=== PATIENT | female | born 1985 | race Caucasian/White ===

== ENCOUNTER 2016-12-25 05:27 | Day surgery (SDC) | payer OTHER ==
--- NOTE | 2016-12-22 22:37 | PREOPHP ---
DATE OF ADMISSION: 12/25/2016 This patient is coming for surgical procedure on the . HISTORY OF PRESENT ILLNESS: Jaymie Isbell is a 31-year-old female, 0, para 0. This patient had seen me in October of this year due to irregular periods with a lost IUD. This patient had a Sriram dayna IUD inserted at [facility] in August of this year and got lost in the pelvis. The ultr asound did not show any intrauterine device. The patient states that a KUB x-ray showed that the IU D was in free the cavity of the peritoneum. She is very uptight about it and would like to have it removed, as she is now having low abdominal pain. PAST MEDICAL HISTORY: Healthy. ALLERGIES: SHE IS NOT ALLERGIC TO ANY MEDICATIONS. SOCIAL HISTORY: She does not drink or smoke. FAMILY HISTORY: Hypertension, breast cancer, and strokes. PHYSICAL EXAMINATION: GENERAL APPEARANCE: Good. VITAL SIGNS: Stable. Blood pressure 110/60, pulse is 80, respirations 16. She weighs 114. She is 5 feet 2 inches. HEAD AND NECK: Normal. BREASTS: Soft, nontender. No masses. CHEST: Clear. HEART: Normal sinus rhythm. LUNGS: Clear. ABDOMEN: Soft, nontender. No masses. GENITALIA: Normal. Cervix is healthy. Uterus retroverted, flexed, nontender. Adnexa are negative . EXTREMITIES: Normal. DIAGNOSES: 1. Intra-abdominal lost Mirena intrauterine device. 2. Pelvic pain. PLAN: She is undergoing a pelviscopic IUD extraction. She has been advised of the possible risks a nd possible complications of the procedure with her alternatives and options. Written information w as provided. She had no more questions and agreed to go ahead with the procedure with full understa nding and no more questions. Dictated By: YUE ADAMS/GRICELDA Conf#: [id number] DID#: [id number]
[2016-12-24 08:56] VITALS: BMI 22.1
[~2016-12-25] VITALS: Ht 154.9 cm; Wt 49.3 kg
[2016-12-25] VITALS (12 sets, daily range): BP systolic 102–114; BP diastolic 53–78; PULSE 64–91; RESP 14–22; Ht 154.9 cm; Wt 49.3 kg
[2016-12-25] MEDS ORDERED: CEFAZOLIN 2 GM/50 ML (PMX) 50 ML IVPB ONE (05:30)
[2016-12-25] MEDS ORDERED: DEXTROSE 5%-LR 1,000 ML IV SCH (06:00)
[2016-12-25] MEDS ORDERED: MIDAZOLAM 1 MG/ML 2 ML INJ ONE (06:28)
[2016-12-25] MEDS ORDERED: ONDANSETRON 4 MG INJ ONE (06:28)
[2016-12-25] MEDS ORDERED: DEXAMETHASONE 4 MG/ML 1 ML INJ ONE (06:28)
[2016-12-25] MEDS ORDERED: NEOSTIGMINE 3 MG/3 ML SYRINGE ONE (06:28)
[2016-12-25] MEDS ORDERED: ROCURONIUM 50 MG INJ ONE (06:28)
[2016-12-25] MEDS ORDERED: GLYCOPYRROLATE 0.4 MG INJ ONE (06:28)
[2016-12-25] MEDS ORDERED: FENTAnyl 50 MCG/ML VIAL ONE (06:28)
[2016-12-25] MEDS ORDERED: PROPOFOL 20 ML ONE (06:28)
[2016-12-25] MEDS ORDERED: LIDOCAINE 2% (SDV) 5 ML INJ ONE (06:28)
[2016-12-25] MEDS ORDERED: SUCCINYLCHOLINE CHLORIDE 100 MG/5 ML SYG IV ONE (06:29)
[2016-12-25] MEDS ORDERED: CEFAZOLIN 1 GM INJ ONE ×2 (06:29→07:00)
[2016-12-25] MEDS ORDERED: ATROPINE 1 MG/10 ML SYRINGE IV PRN (07:00)
[2016-12-25] MEDS ORDERED: ONDANSETRON 4 MG INJ IV PRN (07:00)
[2016-12-25] MEDS ORDERED: HYDROmorphONE (0.2 MG/ML) 10ML SYG IV PRN ×3 (07:00)
[2016-12-25] MEDS ORDERED: hydrALAzine 20 MG INJ IV PRN (07:00)
[2016-12-25] MEDS ORDERED: FENTAnyl 50 MCG/ML VIAL IV PRN ×2 (07:00)
[2016-12-25] MEDS ORDERED: EPHEDrine SULFATE 50 MG/5 ML SYG IV PRN (07:00)
[2016-12-25] MEDS ORDERED: DIPHENHYDRAMINE 50 MG INJ IV PRN (07:00)
[2016-12-25] MEDS ORDERED: MIDAZOLAM 1 MG/ML 2 ML INJ IV PRN (07:00)
[2016-12-25] MEDS ORDERED: MEPERIDINE 25 MG INJ IV PRN (07:00)
[2016-12-25] MEDS ORDERED: OXYCODONE/ACETAMINOPHEN (5/325) TAB PO PRN ×2 (07:00)
[2016-12-25] MEDS ORDERED: morphine (1 MG/ML) 10ML SYRINGE IV PRN ×3 (07:00)
[2016-12-25] MEDS ORDERED: LABETALOL HCL 20MG INJ IV PRN (07:00)
[2016-12-25] MEDS ORDERED: BUPIVACAINE 0.5%/EPI (SDV) 30 ML INJ ONE (07:08)
--- NOTE | 2016-12-25 07:48 | HPN ---
Date/Time of Note Date/Time of Note DATE: 12/25/16 TIME: 07:48 Interval H&P Admission Note Pt. seen H&P reviewed: No system changes YUE BEAN MD December 25, 2016 07:48
--- NOTE | 2016-12-25 09:43 | PD.PPDC ---
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 Patient Condition: Good Activity/Restrictions Activity: Normal Activity May Shower Restrictions: No Exercising No Lifting No Driving No Sexual Activity Nothing in the Vagina No [place] No Tampons, douche Wound/Drain Care Instructions Wound/Drain Care Instructions: Wash with soap and water Keep clean and dry Follow-up Follow-up with Physician: 2, Week/Weeks Return to clinic for [employer] Instructions: Fever greater than 101 Chills Worsening abdominal pain Excessive Vaginal Bleeding More than 2 pads per hour Unable to tolerate diet Surgical Instructions: Incisional Drainage Incisional Redness YUE BEAN MD December 25, 2016 09:43
[2016-12-25] MEDS ORDERED: KETOROLAC 30 MG INJ IV PRN (10:00)
--- NOTE | 2016-12-25 10:57 | OPR ---
DATE OF OPERATION: 12/25/2016 PREOPERATIVE DIAGNOSIS: Lost intrauterine device. POSTOPERATIVE DIAGNOSIS: Lost intrauterine device with intraperitoneal foreign body. PROCEDURE: Pelviscopy and pelviscopic removal of intraperitoneal IUD. SURGEON: Yeu Pimentel MD ANESTHESIOLOGIST: Michele Brewster MD ANESTHESIA: General. DESCRIPTION OF PROCEDURE: The patient was given general anesthesia, placed in the lithotomy positio n and the peritoneal and vaginal area were prepped and draped. A uterine manipulator was used to ap ply on through the cervix and the uterus for manipulation of the uterus. This was done vaginally. A Lopez catheter was placed. A small incision was made over the inferior edge of the umbilicus and the fascia was incised and hel d with 0 Vicryl. The peritoneum was entered bluntly. The Santosh was inserted, the CO2 was inflated and visualization of the pelvic organs revealed that the uterus was bulky as a possible early fibro id. Both tubes and ovaries were normal. There was no IUD seen in the cul-de-sac. A second trocar and cannula were placed suprapubically at this time. Visualization of the cavity was done with Jocelyn apodacanburg and then with reverse Trendelenburg. Looking into the left side area, finally we saw the string of the IUD that was underneath a piece of omentum. A third trocar was placed laterally paral lel to the rectal muscle with a 5 mm trocar, 5 cm below the umbilical area. A grasper was used to l ift the omentum from the IUD and the IUD was freed and removed through the umbilical incision using a 5 mm scope. The procedure was finished by cleaning the cavity with water. The rest of the organs appeared to be normal. The water was aspirated and the abdomen was closed, after the gas was desuf flated of the abdomen, with 0 Vicryl for the fascia and 3-0 Monocryl for all 3 incisions and Dermabo nd, and also Marcaine with epinephrine was used to all 3 incisions for pain control. The patient to lerated the procedure well and left the OR awake and stable. Sponge counts and instrument counts we re correct. Intravenous antibiotics were given for prophylaxis. Dictated By: YUE ADAMS/NTS Conf#: [id number] DID#: [id number]
--- NOTE | 2016-12-25 17:37 | RADRPT ---
Vent Rate: 73 bpm RR Interval: 0 msec AK Interval: 172 msec QRS Duration: 92 msec QT Interval: 378 msec QTC Interval: 416 msec P-R-T [place]: 65 - 63 - 60 degrees Normal sinus rhythm Cannot rule out Anterior infarct , age undetermined Abnormal ECG Electronically Signed By: Xander Hagen [id number]
== END 2016-12-25 11:27 | disposition home or self-care (01) ==
LOC: SDS 05:27
PROVIDERS: ATTEND Obstetrics & Gynecology
DX: Z30.432 Encounter for removal of intrauterine contraceptive device (principal)
CPT/HCPCS: 58562; 88300; 93005; J0690; J1100; J1170; J2250; J2405; J2710; J3010; J7121; J7999; Z7512; Z7610